=== PATIENT | female | born 1980 ===

== ENCOUNTER 2021-02-17 08:44 | Outpatient (CLI) | payer OTHER | END 2021-02-17 10:11 | disposition home or self-care (01) | LOC: PRENATAL 08:44 | PROVIDERS: ATTEND Obstetrics & Gynecology Maternal & Fetal Medicine | DX: O34.211 Maternal care for low transverse scar from previous cesarean delivery (principal); O36.80X1 Pregnancy with inconclusive fetal viability, fetus 1; O09.521 Supervision of elderly multigravida, first trimester; O09.811 Supervision of pregnancy resulting from assisted reproductive technology, first trimester; Z36.89 Encounter for other specified antenatal screening; Z3A.13 13 weeks gestation of pregnancy ==

== ENCOUNTER 2021-04-05 13:07 | Outpatient (CLI) | payer OTHER | END 2021-04-05 14:25 | disposition home or self-care (01) | LOC: PRENATAL 13:07 | PROVIDERS: ATTEND Obstetrics & Gynecology Maternal & Fetal Medicine | DX: O35.0XX1 Maternal care for (suspected) central nervous system malformation in fetus, fetus 1 (principal); O35.3XX1 Maternal care for (suspected) damage to fetus from viral disease in mother, fetus 1; O98.512 Other viral diseases complicating pregnancy, second trimester; O09.512 Supervision of elderly primigravida, second trimester; O09.812 Supervision of pregnancy resulting from assisted reproductive technology, second trimester; O34.212 Maternal care for vertical scar from previous cesarean delivery; Z36.89 Encounter for other specified antenatal screening; Z3A.20 20 weeks gestation of pregnancy ==

== ENCOUNTER 2021-05-17 08:54 | Outpatient (CLI) | payer OTHER | END 2021-05-17 09:51 | disposition home or self-care (01) | LOC: PRENATAL 08:54 | PROVIDERS: ATTEND Obstetrics & Gynecology Maternal & Fetal Medicine | DX: O26.842 Uterine size-date discrepancy, second trimester (principal); O09.522 Supervision of elderly multigravida, second trimester; O34.212 Maternal care for vertical scar from previous cesarean delivery; Z36.89 Encounter for other specified antenatal screening; Z3A.26 26 weeks gestation of pregnancy ==